=== PATIENT | female | born 1990 | race Caucasian/White ===

== ENCOUNTER 2018-07-15 10:06 | Inpatient (IN) | payer OTHER ==
[~2018-07-15] VITALS: Ht 165.1 cm; Wt 115.9 kg
[~2018-07-15 10:06] MED LIST: HYDR-3240 PO; IBUP-1223 PO; PREN1TAB60 PO
[2018-07-15 10:30] VITALS: BP 171/102
[2018-07-15] MEDS ORDERED: OXYTOCIN 30U/ 0.9% NaCL 500ML 500 ML IV ONE ×2 (10:49→10:58)
[2018-07-15] MEDS ORDERED: OXYTOCIN 30U/ 0.9% NaCL 500ML 500 ML IV PRN ×2 (10:58→19:33)
[2018-07-15] MEDS ORDERED: ACETAMINOPHEN 325 MG TABLET PO PRN ×2 (11:00→21:30)
[2018-07-15] MEDS ORDERED: OXYcodone/APAP 5/325MG TABLET PO PRN ×3 (11:00→21:30)
[2018-07-15] MEDS ORDERED: RHOGAM FROM BLOOD BANK 1 NOTE EA IM/IV PRN (11:00)
[2018-07-15] MEDS ORDERED: CALCIUM CARBONATE 500 MG TAB.CHEW PO PRN (11:00)
[2018-07-15] MEDS ORDERED: OXYcodone/APAP 10/325MG TABLET PO PRN (11:00)
[2018-07-15] MEDS ORDERED: FENTANYL PF 100 MCG/2ML IVPush PRN (11:00)
[2018-07-15] MEDS ORDERED: ONDANSETRON 2MG/ML, 2ML IVPush PRN ×2 (11:00→14:00)
[2018-07-15] MEDS: LACTATED RINGERS 1,000 ML IV SCH ×2 (11:04→12:07)
[2018-07-15] MEDS ORDERED: FENTANYL/BUPIV./NS/PF 250 ML EPIDCONT SCH ×2 (11:17→13:54)
[2018-07-15] MEDS ORDERED: FENTANYL PF 500 MCG, BUPIVACAINE/PF 0.5%, 30ML 62.5 ML in SODIUM CHLORIDE 0.9% 177.5 ML EPIDCONT SCH (11:30)
[2018-07-15] MEDS ORDERED: LIDOCAINE/PF 1%, 30ML ONE (11:41)
[2018-07-15] MEDS ORDERED: OXYTOCIN 30U/ 0.9% NaCL 500ML 500 ML ONE ×2 (11:42→21:46)
[2018-07-15] MEDS ORDERED: MISOPROSTOL 200 MCG TABLET ONE (11:42)
[2018-07-15 11:49] LABS: AMPHETAMINE SCREEN, URINE Negative (Negative); BARBITURATE SCREEN, URINE Negative (Negative); BENZODIAZEPINE SCREEN, URINE Negative (Negative); CANNABINOID SCREEN, URINE Negative (Negative); COCAINE SCREEN, URINE Negative (Negative); METHADONE SCREEN, URINE Negative (Negative); OPIATE SCREEN, URINE Negative (Negative)
[2018-07-15 12:07] LABS: MICROSCOPIC INDICATED
[2018-07-15 12:33] LABS: ALANINE AMINOTRANSFERASE 15 U/L (12-78); ALBUMIN 2.8 g/dL (3.4-5.0); ANION GAP 12 mmol/L (5-15); CALCIUM 8.8 mg/dL (8.5-10.1); CHLORIDE 107 mmol/L (98-107); CREATININE 0.68 mg/dL (0.55-1.02)
[2018-07-15 12:41] LABS: BASOPHILS # (AUTO) 0.02 x10^3/uL (0-0.1); BASOPHILS % (AUTO) 0 % (0-1); EOSINOPHILS # (AUTO) 0.01 x10^3/uL (0-0.4); EOSINOPHILS % (AUTO) 0 % (1-7); LYMPHOCYTES % (AUTO) 14 % (22-44); MD NO; MEAN CORPUSCULAR HEMOGLOBIN 26.7 pg (27.0-34.8); MEAN CORPUSCULAR HGB CONC 33.4 g/dL (32.4-35.8); MEAN CORPUSCULAR VOLUME 79.8 fL (80-100); MEAN PLATELET VOLUME 8.5 fL (7.4-10.4); MONOCYTES % (AUTO) 4 % (2-9); NEUTROPHILS # (AUTO) 11.04 x10^3/uL (1.8-6.8); NEUTROPHILS % (AUTO) 83 % (42-75); PLATELET COUNT 308 x10^3/uL (130-400); RED CELL DISTRIBUTION WIDTH 13.1 % (9.6-15.2)
[2018-07-15 12:44] LABS: ALKALINE PHOSPHATASE 120 U/L (45-117); BILIRUBIN,TOTAL 0.3 mg/dL (0.2-1.0); FREE T4 (FREE THYROXINE) 1.06 ng/dL (0.76-1.46); TOTAL PROTEIN 7.8 g/dL (6.4-8.2)
[2018-07-15] MEDS ORDERED: BUPIVACAINE 0.25% ONE (13:06)
[2018-07-15 13:09] LABS: INTERNATIONAL NORMALIZED RATIO 0.92 (0.93-1.1); PROTHROMBIN TIME 9.8 Seconds (9.6-11.5)
[2018-07-15 13:24] LABS: HEMOGLOBIN A1C 7.4 % (4.2-6.3)
[2018-07-15] MEDS ORDERED: LACTATED RINGERS 1,000 ML IV SCH (13:54)
[2018-07-15] MEDS ORDERED: DIPHENHYDRAMINE 50 MG/ML, 1ML IVPush PRN (14:00)
[2018-07-15] MEDS ORDERED: EPHEDRINE 50 MG/ML, 1ML IVPush PRN (14:00)
[2018-07-15] MEDS ORDERED: LACTATED RINGERS 1,000 ML IVBOLUS PRN (14:00)
[2018-07-15] MEDS ORDERED: OXYTOCIN 30U/ 0.9% NaCL 500ML 500 ML IV SCH (21:26)
[2018-07-15] MEDS ORDERED: ONDANSETRON 2MG/ML, 2ML IV PRN (21:30)
[2018-07-15] MEDS ORDERED: DOCUSATE 100 MG CAPSULE PO PRN (21:30)
[2018-07-15] MEDS ORDERED: MISOPROSTOL 200 MCG TABLET PR PRN (21:30)
[2018-07-15] MEDS ORDERED: IBUPROFEN 600 MG TABLET ONE (21:46)
[2018-07-15] MEDS: IBUPROFEN 600 MG TABLET PO PRN (21:49)
[2018-07-15 22:40] VITALS: BP 135/64
[2018-07-15] MEDS ORDERED: CEFAZOLIN PMX 1GM/50ML 50 ML ONE (22:51)
[2018-07-15] MEDS: CEFAZOLIN PMX 1GM/50ML 50 ML IV SCH (22:54)
[2018-07-16 01:32] VITALS: BP 136/66
[2018-07-16 02:37] VITALS: BP 136/71
[2018-07-16 04:41] VITALS: BP 130/74
[2018-07-16 06:09] LABS: BASOPHILS # (AUTO) 0.06 x10^3/uL (0-0.1); BASOPHILS % (AUTO) 0 % (0-1); EOSINOPHILS # (AUTO) 0.03 x10^3/uL (0-0.4); EOSINOPHILS % (AUTO) 0 % (1-7); LYMPHOCYTES # (AUTO) 2.06 x10^3/uL (1-3.4); LYMPHOCYTES % (AUTO) 12 % (22-44); MD NO; MEAN CORPUSCULAR HEMOGLOBIN 26.7 pg (27.0-34.8); MEAN CORPUSCULAR HGB CONC 33.5 g/dL (32.4-35.8); MEAN CORPUSCULAR VOLUME 79.7 fL (80-100); MEAN PLATELET VOLUME 8.1 fL (7.4-10.4); MONOCYTES % (AUTO) 7 % (2-9); NEUTROPHILS # (AUTO) 13.38 x10^3/uL (1.8-6.8); NEUTROPHILS % (AUTO) 80 % (42-75); PLATELET COUNT 236 x10^3/uL (130-400); RED BLOOD COUNT 3.88 x10^6/uL (3.82-5.3); RED CELL DISTRIBUTION WIDTH 13.4 % (9.6-15.2)
[2018-07-16] MEDS ORDERED: CEFAZOLIN PMX 1GM/50ML 50 ML ONE ×2 (06:48→14:45)
[2018-07-16] MEDS: CEFAZOLIN PMX 1GM/50ML 50 ML IV SCH ×2 (07:22→14:47)
[2018-07-16] MEDS ORDERED: PRENATAL VIT/IRON/FA 1 EACH TABLET PO SCH (09:00)
[2018-07-16] MEDS ORDERED: PRENATAL VIT/IRON/FA 1 EACH TABLET ONE (12:43)
[2018-07-16] MEDS ORDERED: IBUPROFEN 600 MG TABLET ONE (12:43)
[2018-07-16] MEDS: IBUPROFEN 600 MG TABLET PO PRN (12:44)
[2018-07-16] MEDS ORDERED: DOCUSATE 100 MG CAPSULE ONE (12:51)
[2018-07-16] MEDS ORDERED: IBUP200T49 PO (16:47)
== END 2018-07-16 18:40 | disposition home or self-care (01) | DRG 806 ==
LOC: LDOP 10:06 → LDIP 10:53 → 2NE 07-16 00:23
PROVIDERS: ADMIT Obstetrics & Gynecology; ATTEND Obstetrics & Gynecology
PROC: 10E0XZZ Delivery of Products of Conception, External Approach (ICD-10-PCS; principal; 2018-07-15)
PROC: 0KQM0ZZ Repair Perineum Muscle, Open Approach (ICD-10-PCS; 2018-07-15)
DX: O36.4XX0 Maternal care for intrauterine death, not applicable or unspecified (principal); O10.92 Unspecified pre-existing hypertension complicating childbirth; Z37.1 Single stillbirth; O36.63X0 Maternal care for excessive fetal growth, third trimester, not applicable or unspecified; O66.0 Obstructed labor due to shoulder dystocia; Z3A.37 37 weeks gestation of pregnancy; O70.1 Second degree perineal laceration during delivery; Z91.19 Patient's noncompliance with other medical treatment and regimen; O69.82X0 Labor and delivery complicated by other cord entanglement, without compression, not applicable or unspecified; O11.4 Pre-existing hypertension with pre-eclampsia, complicating childbirth
CPT/HCPCS: 36415; 76805; 80053; 80074; 80307; 81001; 81241; 82570; 83036; 84156; 84439; 84443; 84550; 85025; 85300; 85301; 85384; 85460; 85598; 85610; 85613; 85670; 85730; 85732; 86146; 86147; 86592; 86644; 86645; 86694; 86695; 86696; 86747; 86762; 86777; 86778; 86850; 86900; 87252; 88305; 88307; G0378; J0690; J2590; J7120